=== PATIENT | female | born 1960 | race Caucasian/White ===

== ENCOUNTER 2022-05-19 08:14 | Emergency (ER) | payer MEDICAID ==
[~2022-05-19] VITALS: Ht 157.5 cm; Wt 81.6 kg
[2022-05-19 08:23] VITALS: BP 167/79
--- NOTE | 2022-05-19 08:25 | NUR ---
PT AMBULATED TO BED 10
[2022-05-19] MEDS ORDERED: ALBUTEROL SULFATE/IPRATROPIU 3 ML SOL IH ONE (08:40)
[2022-05-19] MEDS ORDERED: predniSONE 20 MG TAB PO ONE (08:40)
[2022-05-19] MEDS ORDERED: PRED20TA5 PO (10:42)
[2022-05-19] MEDS ORDERED: ALBU0.0912 IH (10:42)
[2022-05-19] MEDS ORDERED: GUAI118L81 PO (10:44)
[2022-05-19] MEDS ORDERED: SUD30 PO (10:44)
[2022-05-19 10:53] VITALS: BP 138/49
--- NOTE | 2022-05-20 08:59 | NUR ---
(LATE ENTRY) ACTUAL DATE OF ADMINISTRATION
[2022-05-23] MEDS ORDERED: EPINEPHrine 1 MG/ML AMP ONE (01:36)
== END 2022-05-19 10:53 | disposition home or self-care (01) ==
LOC: MED 08:14
DX: J45.901 Unspecified asthma with (acute) exacerbation (principal); Z20.822 Contact with and (suspected) exposure to COVID-19; E11.9 Type 2 diabetes mellitus without complications; Z88.1 Allergy status to other antibiotic agents; Z88.5 Allergy status to narcotic agent; Z79.1 Long term (current) use of non-steroidal anti-inflammatories (NSAID); Z88.8 Allergy status to other drugs, medicaments and biological substances; Z88.0 Allergy status to penicillin; Z79.4 Long term (current) use of insulin; Z79.899 Other long term (current) drug therapy; Z90.710 Acquired absence of both cervix and uterus
CPT/HCPCS: 71045; 87426; 87804; 99284; J7512; Q0092; 94640; J7030